=== PATIENT | male | born 1970 | race American Indian/Alaskan Native ===

== ENCOUNTER 2018-04-05 08:58 | Inpatient (IN) | payer BC ==
[2018-03-22 09:55] VITALS: BMI 36.2
[2018-04-05 11:14] LABS: URINE BILIRUBIN NEGATIVE (NEGATIVE); URINE BLOOD SMALL (NEGATIVE); URINE GLUCOSE (UA) NEGATIVE (NEGATIVE); URINE LEUKOCYTE ESTERASE SMALL Leu/uL (NEGATIVE); URINE PROTEIN TRACE mg/dL (<30 mg/dL); URINE UROBILINOGEN 0.2 E.U./dL (<1 E.U./dL)
[2018-04-05 11:23] LABS: URINE APPEARANCE CLEAR (CLEAR); URINE COLOR YELLOW (YELLOW)
[2018-04-05 11:39] LABS: URINE BACTERIA FEW (NEG)
--- NOTE | 2018-04-05 11:40 | CP.PCM.HP ---
History of Present Illness - History of Present Illness History of Present Illness: 47 M failed conservative management elected for a left total hip replacement NKA Present on Admission - Present on Admission Any Indicators Present on Admission: No History of DVT/PE: No History of Uncontrolled Diabetes: No Review of Systems - Review of Systems All systems: reviewed and no additional remarkable complaints except - Musculoskeletal Musculoskeletal: As Per HPI Past Patient History - Past Social History Smoking Status: Light Smoker < 10 Cigarettes Daily - CARDIAC Hx Pacemaker: No - PULMONARY Hx Respiratory Disorders: No - NEUROLOGICAL Hx Paralysis: No - ENDOCRINE/METABOLIC Hx Endocrine Disorders: No - HEMATOLOGICAL/ONCOLOGICAL Hx Blood Transfusions: No - MUSCULOSKELETAL/RHEUMATOLOGICAL Hx Musculoskeletal Disorders: Yes - GASTROINTESTINAL Hx Gastrointestinal Disorders: No - GENITOURINARY/GYNECOLOGICAL Hx Genitourinary Disorders: No Hx Reproductive Disorders: No - PSYCHIATRIC Hx Emotional Abuse: No Hx Physical Abuse: No Hx Substance Use: No - SURGICAL HISTORY Hx Surgeries: Yes - ANESTHESIA Hx Anesthesia Reactions: No Hx Malignant Hyperthermia: No Meds Allergies/Adverse Reactions: Allergies Allergy/AdvReac Type Severity Reaction Status Date / Time No Known Allergies Allergy Verified 03/22/18 09:55 Physical Exam - Constitutional Appears: Well, No Acute Distress - Head Exam Head Exam: ATRAUMATIC, NORMAL INSPECTION, NORMOCEPHALIC - Neck Exam Neck exam: Positive for: Full Rom, Normal Inspection - Respiratory Exam Respiratory Exam: NORMAL BREATHING PATTERN - Cardiovascular Exam Cardiovascular Exam: RRR - Expanded Lower Extremities Exam Left Hip exam: normal inspection (Calf and thigh are soft and nontender. NVI distally ) Results - Vital Signs Recent Vital Signs: Last Vital Signs Temp 98.2 F 04/05/18 09:48 Pulse 68 04/05/18 09:48 Resp 20 04/05/18 09:48 BP 175/117 H 04/05/18 09:48 Pulse Ox 98 04/05/18 09:48 - Labs Labs: Laboratory Results - last 24 hr 04/05/18 04/05/18 09:28 11:00 Urine Color Yellow Urine Appearance Clear Urine pH 6.0 Ur Specific [place] >= 1.030 Urine Protein Trace H Urine Glucose (UA) Negative Urine Ketones Negative Urine Blood Small H Urine Nitrate Negative Urine Bilirubin Negative Urine Urobilinogen 0.2 Ur Leukocyte Esterase Small H Blood Type O POSITIVE Antibody Screen Negative BBK History Checked No verified bt Assessment & Plan (1) Osteoarthritis of left hip Assessment and Plan: NPO T&C OR for left total hip arthroplasty Risks, benefits and alternatives discussed. Patient verbalizes understanding and would like to proceed. Status: Acute (2) Hypertension Status: Chronic
[2018-04-05] MEDS ORDERED: HYDROmorphone 0.5 mg/0.5 ml ISec IVP PRN (11:58)
[2018-04-05] MEDS ORDERED: Tranexamic Acid 2 ML ONE (11:59)
[2018-04-05] MEDS ORDERED: Bupivacaine Liposomal Inj 20 ml ONE (11:59)
[2018-04-05] MEDS ORDERED: Vancomycin 1 g Inj ONE (15:02)
[2018-04-05] MEDS ORDERED: HYDROmorphone 1 mg/ml ISec IVP PRN (16:21)
--- NOTE | 2018-04-05 16:23 | PCM.SURG1 ---
Surgeon's Initial Post Op Note - Surgeon's Notes Surgeon: Patrick Thornton MD Demi Chef: Ritu Abraham PA-C, Kari Looney PA-C Type of Anesthesia: General Endo Anesthesia Administered By: Dr. Small Pre-Operative Diagnosis: L hip osteoarthritis Operative Findings: see full note Post-Operative Diagnosis: same Operation Performed: L total hip arthroplasty Specimen/Specimens Removed: femoral head Estimated Blood Loss: EBL {In ML}: 100 Blood Products Given: N/A Drains Used: No Drains, Wound Vac Post-Op Condition: Fair Date of Surgery/Procedure: 04/05/18 Time of Surgery/Procedure: 13:00
[2018-04-05] MEDS ORDERED: Lactated Ringer's 1,000 ML IV SCH (16:30)
[2018-04-05] MEDS ORDERED: HYDROmorphone 0.5 mg/0.5 ml ISec IVP STA ×2 (16:30→16:50)
[2018-04-05] MEDS ORDERED: HYDROmorphone 1 mg/ml ISec IVP ONE ×3 (16:35→17:25)
[2018-04-05] MEDS ORDERED: HYDROmorphone 0.5 mg/0.5 ml ISec ONE ×4 (16:52→17:45)
[2018-04-05] MEDS: HYDROmorphone 0.5 mg/0.5 ml ISec IVP PRN ×2 (17:10→17:40)
[2018-04-05] MEDS ORDERED: Labetalol 5 mg/ml Inj 20ML IV ONE ×2 (17:25→17:29)
[2018-04-05] MEDS ORDERED: HYDROmorphone 1 mg/ml ISec IVP STA (17:25)
[2018-04-05] MEDS ORDERED: Labetalol 5 mg/ml Inj 20ML ONE (17:28)
--- NOTE | 2018-04-05 18:30 | RAD ---
PROCEDURE: Left Hip X-ray Radiographs. HISTORY: s/p L BAYRON COMPARISON: None. FINDINGS: BONES: Satisfactory appearance/position of components left BAYRON. JOINTS: Normal. SOFT TISSUES: Normal. OTHER FINDINGS: None. IMPRESSION: Satisfactory postoperative status.
[2018-04-05] MEDS: HYDROmorphone 0.2 mg/ml (30ml) 30 ML IV PRN (18:35)
[2018-04-05] MEDS: oxyCODONE 10 mg Immediate Release Tab PO PRN (18:35)
[2018-04-05 18:53] VITALS: RESP 20
[2018-04-05] MEDS ORDERED: Pneumococcal 23-Valent Vaccine IM ONE (18:53)
[2018-04-05] MEDS: ceFAZolin 2 GM in Sodium Chloride 0.9% 100 ML IVPB SCH (20:22)
[2018-04-06] MEDS: HYDROmorphone 0.2 mg/ml (30ml) 30 ML IV PRN ×3 (00:16→16:47)
[2018-04-06] MEDS: oxyCODONE 10 mg Immediate Release Tab PO PRN ×2 (00:19→05:35)
--- NOTE | 2018-04-06 03:21 | OP ---
PROCEDURE DATE: 04/05/2018 PREOPERATIVE DIAGNOSIS: Left hip arthritis. POSTOPERATIVE DIAGNOSIS: Left hip arthritis. PROCEDURE: Left total hip arthroplasty. SURGEON: Paul Thornton MD ASSISTANTS: Dr. Thornton is assisted by Yoli Rodrigues, the physician assistant professor of religion and Chantal Looney, the physician assistant professor of religion. Both Ms. Rodrigues and Ms. Looney were scrubbed and present throughout the entire case and assisted in patient positioning, retraction throughout the entire case as well as wound closure. ANESTHESIA: General. COMPLICATIONS: None. ESTIMATED BLOOD LOSS: 200 mL. IMPLANT: Biomet dual mobility total hip. INDICATIONS FOR PROCEDURE: This is a 47-year-old gentleman with longstanding left groin pain. Clinical examination consistent with pain with weightbearing, significant loss of internal and external rotation and a mild limb length discrepancy with left limb shorter than the right. Radiographic examination is consistent with advanced degenerative joint disease. After a period of failed nonsurgical management, recommendations were for left hip arthroplasty. The risks, benefits and alternatives of procedure were discussed with the patient and an informed consent was obtained. OPERATIVE PROCEDURE: After the surgical site was signed and verified in the preoperative holding area, the patient was taken to the operating room and placed supine on the operating room table. After administration of general anesthesia, the patient received 3 g of Ancef IV. Matamoros catheter was inserted. Venodyne boots were placed on the nonoperative extremity and patient was positioned in the lateral decubitus position with the left hip up towards the ceiling. Care was taken to make sure all bony prominences and nerves were well padded and protected. An axillary roll was placed in the right axilla and the left lower extremity was prepped and draped in the usual sterile fashion. Bony landmarks were identified approximately 12 cm curvilinear incision was made over the proximal femur and pelvis. Soft tissue was dissected down to the fascia, and the fascia was incised. The Charnley retractor was placed and short external rotators were identified, tied and resected off the proximal femur. T-type capsulotomy was performed. The hip was dislocated. At this point, a femoral neck resection was performed based on the preoperative templating and anterior capsulotomy was performed. Once the acetabulum had been exposed, the acetabulum was reamed sequentially to allow for a 60 mm press-fit cup. Care has been taken to maintain proper acetabular height and version. Trial implant was placed and satisfied with the position, the trial was removed, and the hip was pulse lavaged with antibiotic saline solution. The actual cup was then impacted into place making sure to maintain proper height and version. The cup was further fixed using 2 screws. At this point, attention was directed to the femur. Medullary canal of the proximal femur was reamed and broached sequentially to allow for a 12 mm Press-Fit stem. The calcar was planed then with a trial stem in place, the trial neck and head was placed and the hip was reduced. The hip was taken through a range of motion and was noted to be stable with approximately equal limb length. The hip was dislocated and the trial implants were removed. Then the hip joint was again pulse lavaged with antibiotic saline solution. The actual stem was then impacted into place and then the head was inserted over the stem and the hip was reduced. The hip was noted to be again stable through range of motion and with approximately equal limb length. At this point, capsulotomy was closed using #1 Vicryl suture. The short external rotators were also closed using #1 Vicryl suture. Deep fascia was closed using #1 Vicryl suture. The subcutaneous tissue was closed using 0 Vicryl and 2-0 Vicryl sutures. The skin was closed using gómez. A LULA wound incisional dressing was applied and an abduction pillow was placed. The patient was transferred supine, awakened and taken to recovery room in stable condition. Paul Thornton MD
[2018-04-06] MEDS: ceFAZolin 2 GM in Sodium Chloride 0.9% 100 ML IVPB SCH (03:58)
[2018-04-06 07:16] LABS: BASO # 0.01 K/mm3 (0.0-2.0); BASO % 0.1 % (0.0-3.0); EOS % 0.2 % (1.5-5.0); GRAN # 7.63 (1.4-6.5); HEMOGLOBIN 12.5 g/dL (14.0-18.0); LYMPH # 1.8 (1.2-3.4); LYMPH % 16.9 % (22.0-35.0); MEAN CELL VOLUME 91.4 fl (80.0-105.0); MEAN CORPUSCULAR HEMOGLOBIN 30.6 pg (25.0-35.0); MEAN CORPUSCULAR HGB CONC 33.4 g/dl (31.0-37.0); MEAN PLATELET VOLUME 9.7 fl (7.0-11.0); MONO # 1.1 (0.1-0.6); MONO % 10.8 % (1.0-6.0); RBC 4.09 10^6/uL (3.5-6.1); RED CELL DISTRIBUTION WIDTH 13.1 % (11.5-14.5); WHITE BLOOD COUNT 10.6 10^3/ul (4.5-11.0)
[2018-04-06 07:23] LABS: BLOOD UREA NITROGEN 10 mg/dL (7-21); CALCIUM 8.7 mg/dL (8.4-10.5); GFR AFRICAN-AMERICAN > 60; GFR NON-AFRICAN AMERICAN > 60
[2018-04-06] MEDS ORDERED: Potassium Chloride 20 mEq ER Tab PO ONE (08:40)
[2018-04-06] MEDS: Multivitamin With Minerals Tab PO SCH (09:42)
--- NOTE | 2018-04-06 09:51 | CP.PCM.PN ---
Subjective - Date & Time of Evaluation Date of Evaluation: 04/06/18 Time of Evaluation: 09:28 - Subjective Subjective: POD#1. Patient seen and examined at bedside. Patient alert and awake, laying in bed. Patient states he is in a lot of pain and uncomfortable, rating pain 10/ 10. Patient is currently getting Dilaudid 0.2mg vice president tax with 8 min lockout, oxycodone 10mg Q6prn pain, Tylenol 650mg Q6h scheduled. Patient states at home he takes Percocet 10mg three times a day. Hip abduction pillow is not on. Afebrile WBC 10.6 Hgb 12.5 L hip: dressings are dry and intact with Kelle in place. +AROM of foot and ankle. Sensation intact. Thigh and calf are soft and non-tender. NVI distally. POD#1 s/p L BAYRON Cont DVT prophylaxis Cont PT Cont hip abduction pillow at all times while in bed, I discussed this with the patient and his . Cont pain control, will add Toradol 30mg IV Q6. Begin discharge planning to subacute rehab facility. Patient and his would like to go to [facility]. Will discuss with case management Dressing changes tomorrow Objective - Vital Signs/Intake and Output Vital Signs (last 24 hours): Temp Pulse Resp BP Pulse Ox 99.6 F 36 L 20 156/60 H 96 04/06/18 06:00 04/06/18 06:00 04/06/18 06:00 04/06/18 06:00 04/06/18 06:00 Intake and Output: 04/06/18 04/06/18 06:59 18:59 Intake Total 560 Output Total 2100 Balance -1540 - Medications Medications: Current Medications Acetaminophen (Tylenol 325mg Tab) 650 mg PO Q6 [facility] Docusate Sodium (Colace) 100 mg PO BID [facility] Last Admin: 04/05/18 18:22 Dose: 100 mg Enoxaparin Sodium (Lovenox) 40 mg SC Q24H MARÍA PRN Reason: Protocol Hydromorphone HCl (Dilaudid 0.2 Mg/Ml [employer]) 30 mls @ 0.2 mls/hr IV PRN PRN 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
--- NOTE | 2018-04-06 12:31 | CON ---
HISTORY OF PRESENT ILLNESS: The patient is a 47 year old man with a past medical history of hypertension and OA of the left hip who presented for electively scheduled left total hip replacement. The patient underwent successful left total hip replacement with Dr. Thornton with no postoperative complications noted and was subsequently admitted to the general medical flores for continued postoperative care, physical therapy and to facilitate arrangements for subacute rehab. A medical consultation is requested to co-manage the patient's medical comorbidities. PAST MEDICAL HISTORY: As per HPI. Also hypertension. PAST SURGICAL HISTORY: Bilateral knee surgery. ALLERGIES: NKDA. MEDICATIONS: Lisinopril 40 mg p.o. daily and Mobic 15 mg p.o. daily. FAMILY HISTORY: Significant for diabetes in his mother. SOCIAL HISTORY: The patient reports a former 10-pack year smoking history but quit 2 years ago. He reports social alcohol use and denies illicit drug abuse. REVIEW OF SYSTEMS: A 14-point review of systems is negative except as per HPI PHYSICAL EXAMINATION VITAL SIGNS: Temperature 99.6, pulse 80, blood pressure 156/60, respiratory rate 18, oxygen saturation 97% on room air. GENERAL: No apparent distress. HEENT: PERRL. EOMI. No scleral icterus. No conjunctival pallor. NECK: Supple with full range of motion. No JVD. No bruits. LUNGS: Clear to auscultation. CARDIOVASCULAR: Regular rate and rhythm. Normal S1 and S2. ABDOMEN: Normoactive bowel sounds. Soft, nontender, nondistended. EXTREMITIES: No edema. Surgical site at the left hip appears clean, dry and intact. NEUROLOGIC: Awake, alert and oriented x 3. No focal motor deficits. LABORATORY DATA: CBC reviewed and unremarkable. CMP reviewed and unremarkable with the exception of a potassium of 3.3. ASSESSMENT: The patient is a 47 year old man with a past medical history of osteoarthritis of the left hip and hypertension who presented for electively scheduled left total hip replacement who is now POD #1. PLAN: 1. Osteoarthritis of the left hip s/p left THR POD #1. Continue with postoperative care as per Dr. Thornton. Encourage incentive spirometry and early ambulation as tolerated. 2. Hypertension. Blood pressure remains slightly elevated. Continue Lisinopril 40 mg p.o. daily and we will start Norvasc 10 mg p.o. daily. CODE STATUS: Full code. Zane Simpson MD Faustino # [id number] CHERYL
[2018-04-06] MEDS: Enoxaparin 40 mg Syringe SC SCH (16:28)
[2018-04-06] MEDS ORDERED: HYDROmorphone 1 mg/ml ISec IVP PRN (19:15)
[2018-04-06] MEDS ORDERED: HYDROmorphone 0.5 mg/0.5 ml ISec IVP PRN (19:19)
[2018-04-07 07:28] LABS: BASO # 0.01 K/mm3 (0.0-2.0); BASO % 0.1 % (0.0-3.0); EOS # 0.1 (0.0-0.7); EOS % 0.4 % (1.5-5.0); GRAN # 10.73 (1.4-6.5); GRAN % 75.1 % (50.0-68.0); HEMOGLOBIN 12.1 g/dL (14.0-18.0); LYMPH % 13.7 % (22.0-35.0); MEAN CELL VOLUME 91.3 fl (80.0-105.0); MEAN CORPUSCULAR HEMOGLOBIN 30.9 pg (25.0-35.0); MEAN CORPUSCULAR HGB CONC 33.9 g/dl (31.0-37.0); MEAN PLATELET VOLUME 9.5 fl (7.0-11.0); MONO # 1.5 (0.1-0.6); MONO % 10.7 % (1.0-6.0); RBC 3.91 10^6/uL (3.5-6.1); RED CELL DISTRIBUTION WIDTH 13.3 % (11.5-14.5); WHITE BLOOD COUNT 14.3 10^3/ul (4.5-11.0)
[2018-04-07 07:47] LABS: BLOOD UREA NITROGEN 17 mg/dL (7-21); CALCIUM 8.7 mg/dL (8.4-10.5); GFR AFRICAN-AMERICAN > 60; GFR NON-AFRICAN AMERICAN > 60
[2018-04-07] MEDS ORDERED: Potassium Chloride 20 mEq ER Tab PO ONE (07:54)
--- NOTE | 2018-04-07 09:07 | CP.PCM.PN ---
Subjective - Date & Time of Evaluation Date of Evaluation: 04/07/18 Time of Evaluation: 08:42 - Subjective Subjective: Patient POD#2. Patient alert and awake,sitting up in chair. Patient states he feels much better today. Pain is less and is controlled Afebrile WBC 14.3 Hgb 12.1 L hip: dressings removed. Incision is clean and intact. There is no erythema or drainage. No signs of cellulitis or infection. Incision cleaned with NSS and new dry dressings applied. Thigh and calf are soft and nontender. NVI distally POD #2 s/p L BAYRON Cont DVT prophylaxis Cont PT Cont incentive spirometer Plan on discharge planning to subacute rehab today Discussed above with Dr. Thornton, he agrees. Will follow up with patient in Dr. Thornton office in 2 weeks Objective - Vital Signs/Intake and Output Vital Signs (last 24 hours): Temp Pulse Resp BP Pulse Ox 98.5 F 76 20 140/93 H 98 04/07/18 06:00 04/07/18 06:00 04/07/18 06:00 04/07/18 06:00 04/07/18 06:00 Intake and Output: 04/07/18 04/07/18 06:59 18:59 Intake Total 720 Balance 720 - Medications Medications: Current Medications Acetaminophen (Tylenol 325mg Tab) 650 mg PO Q6 [facility] Last Admin: 04/07/18 06:56 Dose: 650 mg Amlodipine Besylate (Norvasc) 10 mg PO DAILY [facility] Last Admin: 04/06/18 11:39 Dose: 10 mg Calcium Carbonate (Oscal) 500 mg PO DAILY [facility] Cholecalciferol (Vitamin D) 2,000 intlu PO DAILY [facility] Docusate Sodium (Colace) 100 mg PO BID [facility] Last Admin: 04/06/18 18:23 Dose: Not Given Enoxaparin Sodium (Lovenox) 40 mg SC Q24H MARÍA PRN Reason: Protocol Last Admin: 04/06/18 16:28 Dose: 40 mg Hydromorphone HCl (Dilaudid) 1 mg IVP Q4 PRN PRN Reason: Pain, severe (8-10) Ketorolac Tromethamine (Toradol) 30 mg IVP Q6H [facility] Last Admin: 04/07/18 03:14 Dose: 30 mg Lisinopril (Zestril) 40 mg PO DAILY [facility] Last Admin: 04/06/18 09:42 Dose: 40 mg Multivitamins/Minerals (Therapeutic-M Tab) 1 tab PO DAILY [facility] Last Admin: 04/06/18 09:42 Dose: 1 tab Oxycodone HCl (Oxycodone Immediate Release Tab) 10 mg PO Q6H PRN PRN Reason: Pain, moderate (4-7) Last Admin: 04/06/18 05:35 Dose: 10 mg Pregabalin (Lyrica) 50 mg PO BID [facility] Last Admin: 04/06/18 17:58 Dose: 50 mg - Labs Labs: 04/07/18 06:45 04/07/18 06:45 Assessment and Plan (1) Osteoarthritis of left hip Status: Acute (2) Hypertension Status: Chronic
[2018-04-07] MEDS ORDERED: Cholecalciferol 1,000 INTLU TAB PO SCH (10:00)
[2018-04-07] MEDS: Multivitamin With Minerals Tab PO SCH (10:18)
--- NOTE | 2018-04-07 12:15 | PN ---
SUBJECTIVE: The patient was seen and examined at bedside on the general medical flores. No acute events overnight. He remains afebrile and hemodynamically stable. This morning he feels well, offers no complaints and is looking forward to discharge to subacute rehab. PHYSICAL EXAMINATION VITAL SIGNS: Temperature 99.4, pulse 80, blood pressure 121/79, respiratory rate 18, oxygen saturation 98% on room air. GENERAL: No apparent distress. HEENT: PERRL. EOMI. No scleral icterus. No conjunctival pallor. NECK: No JVD. LUNGS: Clear to auscultation. CARDIOVASCULAR: Regular rate and rhythm. Normal S1 and S2. ABDOMEN: Normoactive bowel sounds. Soft, nontender, nondistended. EXTREMITIES: No edema. Surgical site appears clean, dry and intact. NEUROLOGIC: Awake, alert, and oriented x 3. No focal motor deficits. LABORATORY DATA: WBC 14 with 75% neutrophils, hemoglobin of 12, hematocrit 36, platelets 238. ASSESSMENT: The patient is a 47 year old man with a past medical history of osteoarthritis of the left hip and hypertension who presented for electively scheduled left hip replacement who is now POD #2. PLAN: 1. Osteoarthritis of the left hip s/p left THR POD #2. Continue with postoperative care as per Dr. Thornton. Continue with analgesics as per Dr. Thornton. Continue to encourage incentive spirometry and early ambulation as tolerated. 2. Hypertension. Continue Lisinopril 40 mg p.o. daily and Amlodipine 10 mg p.o. daily. 3. Prophylaxis. GI prophylaxis is not indicated as the patient is eating. Continue with Lovenox for DVT prophylaxis. CODE STATUS: Full code. Zane Simpson MD MTDD
[2018-04-07] MEDS: Enoxaparin 40 mg Syringe SC SCH (14:00)
[2018-04-07 15:21] VITALS: BP 151/93; PULSE 83; TEMP 99.5; O2SAT 99
--- NOTE | 2018-04-07 21:51 | CP.PCM.DIS ---
Provider - Provider Date of Admission: 04/05/18 08:58 Attending physician: Paul Thornton MD Time Spent in preparation of Discharge (in minutes): 30 Diagnosis - Discharge Diagnosis (1) Osteoarthritis of left hip Status: Acute (2) Hypertension Status: Chronic (3) Vitamin D deficiency Status: Acute Comment: patient started on cholecalciferol 2000 IU daily Hospital Course - Lab Results Lab Results: Most Recent Lab Values WBC 14.3 10^3/ul (4.5-11.0) H D 04/07/18 06:45 RBC 3.91 10^6/uL (3.5-6.1) 04/07/18 06:45 Hgb 12.1 g/dL (14.0-18.0) L 04/07/18 06:45 Hct 35.7 % (42.0-52.0) L 04/07/18 06:45 MCV 91.3 fl (80.0-105.0) 04/07/18 06:45 MCH 30.9 pg (25.0-35.0) 04/07/18 06:45 MCHC 33.9 g/dl (31.0-37.0) 04/07/18 06:45 RDW 13.3 % (11.5-14.5) 04/07/18 06:45 Plt Count 238 10^3/uL (120.0-450.0) 04/07/18 06:45 MPV 9.5 fl (7.0-11.0) 04/07/18 06:45 Gran % 75.1 % (50.0-68.0) H 04/07/18 06:45 Lymph % (Auto) 13.7 % (22.0-35.0) L 04/07/18 06:45 Motley % (Auto) 10.7 % (1.0-6.0) H 04/07/18 06:45 Eos % (Auto) 0.4 % (1.5-5.0) L 04/07/18 06:45 Baso % (Auto) 0.1 % (0.0-3.0) 04/07/18 06:45 Gran # 10.73 (1.4-6.5) H 04/07/18 06:45 Lymph # (Auto) 2.0 (1.2-3.4) 04/07/18 06:45 Motley # (Auto) 1.5 (0.1-0.6) H 04/07/18 06:45 Eos # (Auto) 0.1 (0.0-0.7) 04/07/18 06:45 Baso # (Auto) 0.01 K/mm3 (0.0-2.0) 04/07/18 06:45 Sodium 139 mmol/L (132-148) 04/07/18 06:45 Potassium 3.4 mmol/L (3.6-5.0) L 04/07/18 06:45 Chloride 101 mmol/L (98-107) 04/07/18 06:45 Carbon Dioxide 29 mmol/L (21-33) 04/07/18 06:45 Anion Gap 12 (10-20) 04/07/18 06:45 BUN 17 mg/dL (7-21) 04/07/18 06:45 Creatinine 0.9 mg/dl (0.8-1.5) 04/07/18 06:45 Est GFR ( Amer) > 60 04/07/18 06:45 Est GFR (Non-Af Amer) > 60 04/07/18 06:45 Random Glucose 131 mg/dL (70-110) H 04/07/18 06:45 Calcium 8.7 mg/dL (8.4-10.5) 04/07/18 06:45 25-OH Vitamin D Total 25.4 NG/ML (30.0-100.0) L 04/06/18 07:03 Urine Color Yellow (YELLOW) 04/05/18 11:00 Urine Appearance Clear (CLEAR) 04/05/18 11:00 Urine pH 6.0 (4.7-8.0) 04/05/18 11:00 Ur Specific [place] >= 1.030 (1.005-1.035) 04/05/18 11:00 Urine Protein Trace mg/dL (<30 mg/dL) H 04/05/18 11:00 Urine Glucose (UA) Negative mg/dL (NEGATIVE) 04/05/18 11:00 Urine Ketones Negative mg/dL (NEGATIVE) 04/05/18 11:00 Urine Blood Small (NEGATIVE) H 04/05/18 11:00 Urine Nitrate Negative (NEGATIVE) 04/05/18 11:00 Urine Bilirubin Negative (NEGATIVE) 04/05/18 11:00 Urine Urobilinogen 0.2 E.U./dL (<1 E.U./dL) 04/05/18 11:00 Ur Leukocyte Esterase Small Shandra/uL (NEGATIVE) H 04/05/18 11:00 Urine RBC 5 - 10 /hpf (0-2) 04/05/18 11:00 Urine WBC 5 - 10 /hpf (0-6) 04/05/18 11:00 Ur Epithelial Cells 1 - 3 /hpf (0-5) 04/05/18 11:00 Urine Bacteria Few (NEG) 04/05/18 11:00 Blood Type O POSITIVE 04/05/18 09:28 Blood Type Confirm O POSITIVE 04/05/18 11:15 Antibody Screen Negative 04/05/18 09:28 BBK History Checked No verified bt 04/05/18 09:28 - Hospital Course Hospital Course: 61M with PMH: HTN with left hip osteoarthritis failed conservative management and elected for TKR. Postoperative imaging demonstrated acceptable position of prosthesis. Medical consultation was requested for post operative medical management. HTN controlled throughout admission. Patient tolerated PT/OT well. Patient received VTE prophylaxis in the form of lovenox 40mg SQ q24h and venodynes. Patient also instructed to continue with hip abduction pillow and posterior hip precautions. PT was discharged to [facility] subacute rehab, and continued on home medications as well as the lovenox. Patient will follow up in Dr. Thornton's office in 2 weeks. Discharge Exam - Head Exam Head Exam: ATRAUMATIC, NORMAL INSPECTION, NORMOCEPHALIC - Respiratory Exam Respiratory Exam: NORMAL BREATHING PATTERN - Cardiovascular Exam Cardiovascular Exam: RRR - Extremities Exam Additional comments: L hip dressings changed today. Incision is clean and intact. There is no erythema or drainage. Thigh and calf are soft and nontender. NVI distally - Neurological Exam Neurological exam: Alert, CN II-XII Intact - Psychiatric Exam Psychiatric exam: Normal Affect, Normal Mood Discharge Plan - Follow Up Plan Disposition: REHAB FACILITY/REHAB UNIT Instructions: High Blood Pressure in Adults, Total Hip Replacement, Heart Healthy Diet, Osteoarthritis (DC) Additional Instructions: Cont DVT prophylaxis Cont PT Cont hip abduction pillow Will follow up with patient in Dr. Thornton's office in 2 weeks.
== END 2018-04-07 20:20 | DRG 470 ==
LOC: SDAINP 08:58 → EDSTATUS 11:15 → 5RSO 18:06
PROVIDERS: ADMIT Orthopaedic Surgery; ATTEND Orthopaedic Surgery
PROC: 0SRB0JZ Replacement of Left Hip Joint with Synthetic Substitute, Open Approach (ICD-10-PCS; principal; 2018-04-05 11:15)
DX: M16.12 Unilateral primary osteoarthritis, left hip (principal); I10 Essential (primary) hypertension; E55.9 Vitamin D deficiency, unspecified; Z87.891 Personal history of nicotine dependence; Z83.3 Family history of diabetes mellitus